=== PATIENT | female | born 1960 | race Caucasian/White ===

== ENCOUNTER → 2019-11-13 07:51 | Outpatient (CLI) | payer BC, SELFPAY ==
--- NOTE | ~2019-11-13 | XR_ITS ---
XR chest 2V DATE: 11/13/2019 08:03 INDICATION: Cough for one week TECHNIQUE: 2 views COMPARISON: 10/25/2012 two-view chest FINDINGS: There is moderate bilateral hyperinflation. No pulmonary infiltrate or consolidation, pleur al effusion or pulmonary vascular congestion or pneumothorax. Calcified pulmonary granuloma on the ri ght. Normal heart size. No hilar or mediastinal enlargement. Diffuse osteopenia. Mild thoracic dextroscoliosis. IMPRESSION: Bilateral hyperinflation suggesting COPD No active cardiopulmonary disease Reviewed, dictated and finalized at location B. SORTER
== END ==
PROVIDERS: PCP Family Medicine; Visit Provider Family Medicine
DX: R05 Cough (principal); R91.8 Other nonspecific abnormal finding of lung field
CPT/HCPCS: 71046

== ENCOUNTER 2020-07-13 08:39 | Outpatient (CLI) | payer BC, SELFPAY ==
--- NOTE | ~2020-07-13 | DEXA_ITS ---
Bone Density Report Name: Blanche Taylor Age: 60 Sex: Female Ethnicity: White Date of : 1960 Indication: osteopenia; monitoring treatment; height loss; inflammatory bowel disease; Referring Provider: FERMIN, JUAN Study: Bone densitometry was performed. Exam Date: July 13, 2020 Accession number: [id number] Bone Density: Region BMD T-score Z-score Classification AP Spine (L1-L4) 0.820 -2.1 -0.5 Osteopenia Femoral Neck (Left) 0.676 -1.6 -0.2 Osteopenia Total Hip (Left) 0.764 -1.5 -0.4 Osteopenia Total Hip Bilateral Avg 0.776 -1.4 -0.3 Osteopenia Femoral Neck (Right) 0.668 -1.6 -0.3 Osteopenia Total Hip (Right) 0.787 -1.3 -0.2 Osteopenia World Health Organization criteria for BMD impression classify patients as: Normal (T-score at or above -1.0), Osteopenia (T-score between -1.0 and -2.5), or Osteoporosis (T-score at or below -2.5). 10-year Fracture Risk: FRAX not reported because: Treated for osteoporosis Previous Exams: Region Exam Age BMD T-score BMD Change BMD Change Date g/cm2 vs Baseline vs Previous AP Spine(L1-L4) 07/13/2020 60 0.820 -2.1 -0.136(-14.3%) -0.055(-6.3%)* 04/23/2018 57 0.875 -1.6 -0.081(-8.5%)# 0.075(9.4%)* 01/13/2016 55 0.799 -2.3 -0.157(-16.4%) -0.004(-0.5%)# 10/28/2013 53 0.804 -2.2 -0.152(-15.9%) -0.152(-15.9%) 12/12/2009 49 0.956 -0.8 Total Hip(Left) 07/13/2020 60 0.764 -1.5 -0.108(-12.4%) -0.095(-11.1%) 04/23/2018 57 0.859 -0.7 -0.013(-1.5%)# 0.057(7.1%)* 01/13/2016 55 0.802 -1.1 -0.070(-8.0%)# 0.020(2.6%)# 10/28/2013 53 0.782 -1.3 -0.090(-10.3%) -0.090(-10.3%) 12/12/2009 49 0.872 -0.6 Total Hip(Right) 07/13/2020 60 0.787 -1.3 -0.039(-4.8%)# -0.053(-6.3%)* 04/23/2018 57 0.840 -0.8 0.014(1.7%)# 0.011(1.4%) 01/13/2016 55 0.828 -0.9 0.002(0.3%)# -0.020(-2.4%)# 10/28/2013 53 0.849 -0.8 0.023(2.8%)# 0.023(2.8%)# 12/12/2009 49 0.826 -1.0 *Denotes significance at 95% confidence level, LSC for AP Spine = 0.022 g/cm2, LSC for Total Hip = 0.027 g/cm2 Clinical Information Provided by Patient: Is being treated for osteoporosis Has used the following medications: Boniva (i.e. ibandronate), Prolia (i.e. denosumab), Vitamin D Has the following medical conditions: Inflammatory bowel diseases Patient maximum height was 66 Menopause Age: 49 Drinks caffeinated beverages Onset of menses at age 13 Number of children 0
--- NOTE | ~2020-07-13 | MM_ITS ---
EXAMINATION: MM screening ander BI w elmo HISTORY: Screening TECHNIQUE: Craniocaudal and mediolateral oblique 3-D tomosynthesis images were obtained and synthetic 2-D images were generated. CAD analysis was submitted and interpreted. COMPARISON: Comparison to multiple prior studies sequentially, with oldest reviewed study dated 06/2012. BREAST PARENCHYMAL COMPOSITION: The breasts are heterogeneously dense, which may obscure small masses . FINDINGS: There is no evidence of suspicious mass, calcification, or architectural distortion to sugg est malignancy in either breast. There has been no suspicious interval change. IMPRESSION: 1. No mammographic evidence of malignancy. 2. Recommend routine screening mammography in one year. BI-RADS Category 1: Negative Reviewed, dictated and finalized at location A.
== END 2020-07-13 08:40 | disposition home or self-care (01) ==
LOC: ANHIMG 08:41
PROVIDERS: PCP Family Medicine; Visit Provider Nurse Practitioner
DX: Z12.31 Encounter for screening mammogram for malignant neoplasm of breast (principal); M85.89 Other specified disorders of bone density and structure, multiple sites
CPT/HCPCS: 77063; 77067; 77080

== ENCOUNTER 2020-08-22 08:31 | Outpatient (CLI) | payer BC, SELFPAY ==
--- NOTE | 2020-08-25 16:43 | P.PCNPFT_ITS ---
PFT Interpretation PFT Interpretation: DOS: 08/22/2020 REQUESTING: Larry Vernon MD REASON FOR TESTING: COPD by CXR PULMONARY FUNCTION TESTS Results are reproducible. Spirometry: FEV1 is 80%, 1.78 L, normal. FVC is 94%, normal. The FEV1% ratio is decreased consistent with airflow obstruction. The WOE93-34% is severely de creased 33% and increases 26% with bronchodilator. FEV1 increases 15% and more than 200 ml with bronchodilator. Lung volumes: TLC 114%, normal. RV increased at 144%, moderate air trapping. Increased airway resistance. Diffusion: DLCO is 98%, normal. Flow volume loop: Mild scooping of the expiratory limb. IMPRESSION: Mild obstructive ventilatory impairment which is severe in the small airways, good response to bronchodilator, moderate air trapping, increased airway resistance. Normal diffusion. This pattern in the proper clinical setting may be compatible with asthma. Clinical correlation is recommended. Brandi Gleason MD
== END 2020-08-22 08:32 | disposition home or self-care (01) ==
PROVIDERS: PCP Family Medicine; Visit Provider Family Medicine
DX: R05 Cough (principal); R91.8 Other nonspecific abnormal finding of lung field; R94.2 Abnormal results of pulmonary function studies
CPT/HCPCS: 94060; 94726; 94729

== ENCOUNTER → 2021-07-25 09:08 | Outpatient (CLI) | payer BC, SELFPAY ==
--- NOTE | ~2021-07-25 | CT_ITS ---
EXAMINATION: CT lung screening DATE: 07/25/2021 09:27 INDICATION: Personal history of tobacco dependence TECHNIQUE: Computed tomography (CT) of the chest was performed without intravenous contrast. The dose -length product was 55.14 mGy-cm. Automated exposure control and iterative reconstruction technique w ere employed. COMPARISON: None FINDINGS: Heart size is normal. No significant pleural or pericardial effusion. Mild atherosclerosis of the aorta and coronary arteries. No thoracic lymphadenopathy. There are a few small nonenlarged ca lcified mediastinal/hilar lymph nodes, consistent with chronic granulomatous disease. There is apical pleural thickening/scarring. There is a densely calcified nodule in the right upper lobe anteriorly. There is a 4 mm right lower lobe nodule, image 72. There is a subsolid 4 mm nodule in the left upper lobe, image 40. IMPRESSION: 1. Lung-RADS category 2: Benign appearance or behavior. Continue annual screening with noncontrast lo w-dose chest CT in 12 months. Reviewed, dictated and finalized at location B. IMPRESSION: 1. Lung-RADS category 2: Benign appearance or behavior. Continue annual screeni ng with noncontrast low-dose chest CT in 12 months.
== END ==
PROVIDERS: PCP Internal Medicine; Visit Provider Internal Medicine
DX: Z87.891 Personal history of nicotine dependence (principal)
CPT/HCPCS: 71271

== ENCOUNTER 2021-08-09 08:14 | Outpatient (CLI) | payer BC, SELFPAY ==
--- NOTE | ~2021-08-09 | MM_ITS ---
EXAMINATION: MM screening ander BI w elmo HISTORY: Screening TECHNIQUE: Craniocaudal and mediolateral oblique 3-D tomosynthesis images were obtained and synthetic 2-D images were generated. CAD analysis was submitted and interpreted. COMPARISON: Comparison to multiple prior studies sequentially, with oldest reviewed study dated 11/16. BREAST PARENCHYMAL COMPOSITION: The breasts are heterogeneously dense, which may obscure small masses . FINDINGS: There is no evidence of suspicious mass, calcification, or architectural distortion to sugg est malignancy in either breast. There has been no suspicious interval change. IMPRESSION: 1. No mammographic evidence of malignancy. 2. Recommend routine screening mammography in one year. BI-RADS Category 1: Negative Reviewed, dictated and finalized at location A.
== END 2021-08-09 08:15 | disposition home or self-care (01) ==
LOC: ANHIMG 08:16
PROVIDERS: PCP Internal Medicine; Visit Provider Nurse Practitioner
DX: Z12.31 Encounter for screening mammogram for malignant neoplasm of breast (principal)
CPT/HCPCS: 77063; 77067

== ENCOUNTER → 2021-11-14 02:01 | Outpatient (CLI) | payer BC, SELFPAY ==
[2021-11-14 12:14] LABS: Influenza A QL RT-PCR Negative (Negative); Influenza B QL RT-PCR Negative (Negative); SARS-CoV-2 RNA PCR Negative
== END ==
PROVIDERS: PCP Internal Medicine; Visit Provider Internal Medicine
DX: R68.89 Other general symptoms and signs (principal); Z20.822 Contact with and (suspected) exposure to COVID-19
CPT/HCPCS: 87502; C9803; U0003; U0005

== ENCOUNTER 2022-08-29 09:07 | Emergency (ER) | payer BC, SELFPAY ==
--- NOTE | ~2022-08-29 | XR_ITS ---
EXAMINATION: XR shoulder RT min 2V DATE: 08/29/2022 09:39 INDICATION: Worsening right shoulder pain. TECHNIQUE: 4 views of right shoulder were obtained. COMPARISON: None. FINDINGS: Bone alignment is normal. No fracture. There is mild osteoarthritis of glenohumeral joint a nd acromioclavicular joint. There are old healed right rib fractures. Calcified right lung nodules an d calcified right hilar lymph nodes are consistent with old granulomatous disease. IMPRESSION: 1. Mild polyarticular osteoarthritis. Reviewed, dictated and finalized at location A. ITAL WARD CLERK
[2022-08-29 09:10] VITALS: BP 182/89; PULSE 101; RESP 16; TEMP 36.3; O2SAT 98
--- NOTE | 2022-08-29 09:52 | ED.UPPEXIN ---
HPI - Extremity Injury (Upper) General Chief Complaint: Extremity Injury, Upper Stated Complaint: R arm pain x 1 mos Time Seen by Provider: 08/29/22 09:09 Source: patient Mode of arrival: ambulatory Limitations: no limitations History of Present Illness HPI narrative: This is a 62 year old female that presents to the ER for right shoulder pain ongoing over the last month. Reports a constant achy pain, that is intermittently sharp. Worse with certain movements and at night. No recent injuries or trauma. Reports she has been taking Tylenol and Ibuprofen with some relief. Denies fever, erythema, edema, or numbness. Related Data Home Medications Medication Instructions Recorded Confirmed cholecalciferol (vitamin D3) 25 25 mcg PO DAILY 07/13/21 11/29/21 mcg (1,000 unit) capsule denosumab 60 mg/mL subcutaneous 60 mg subcut [id number] 07/13/21 11/29/21 syringe (Prolia) esomeprazole magnesium 20 mg 20 mg PO DAILY 07/13/21 11/29/21 capsule,delayed release (Nexium) tolterodine 4 mg capsule,extended 4 mg PO DAILY 07/13/21 11/29/21 release 24 hr Allergies Allergy/AdvReac Type Severity Reaction Status Date / Time No Known Allergies Allergy Mild NONE Verified 08/29/22 09:13 Review of Systems Review of Systems: CONSTITUTIONAL: Denies fever SKIN: Denies rash MUSCULOSKELETAL: Reports joint pain, and myalgia. NEUROLOGIC: Denies numbness, or weakness. All systems reviewed & are unremarkable except as noted in HPI and below PMFSH Past Medical History Medical History (Updated 08/29/22 @ 10:09 by Kathy Beltran PA-C) Anxiety Asthma Change in weight Difficulty breathing Difficulty sleeping Frequent urination Hair changes Headache High cholesterol Hot flashes IBS (irritable bowel syndrome) Irritable Palpitations Skin change Tired Family History Family History (Updated 07/13/21 @ 13:21 by Ny Marshall CNA) Father Alcohol abuse Dementia Leukemia Mother Heart disease Thyroid disease Sibling Hypertension Heart disease Leukemia Grandparent Heart disease Dementia Grandparent Heart disease Social History Social History (Updated 07/13/21 @ 13:29 by Ny Marshall CNA) Smoking packs per day: 1 Smoking cigarettes per day: 20.0 Years smoked: 40 Smoking pack-years: 40.00 Smoking status: Former smoker Tobacco type: cigarettes and e-cigarettes/vaping Second hand tobacco smoke exposure: Yes Smoking end date: 10/07/14 Alcohol intake: current Alcohol use details: beer Substance use: never Substance use type: does not use Exam Narrative: GENERAL: Well-appearing, well-nourished, and in no acute distress. HEAD: Normocephalic, atraumatic. EYES: EOMI. CHEST: Clear to auscultation. No respiratory distress. No wheezes rales or rhonchi HEART: Regular rate and rhythm. No murmur heard. Normal peripheral pulses. EXTREMITIES: Normal range of motion. No edema, erythema or warmth of the arm. Strength equal in bilateral upper extremities (5/5) SKIN: Warm, dry, no rash. NEURO: No focal deficits. Alert and oriented x3. PSYCH: Normal mood and affect Course Vital Signs Vital signs: Vital Signs Temperature 97.4 F L 08/29/22 09:10 Pulse Rate 101 H 08/29/22 09:10 Respiratory Rate 16 08/29/22 09:10 Blood Pressure 182/89 H 08/29/22 09:10 Pulse Oximetry 98 08/29/22 09:10 Oxygen Delivery Room Air 08/29/22 09:10 Temperature 97.4 F L 08/29/22 09:10 Pulse Rate 86 08/29/22 10:17 Respiratory Rate 18 08/29/22 10:17 Blood Pressure 168/80 H 08/29/22 10:17 Pulse Oximetry 97 08/29/22 10:17 Oxygen Delivery Room Air 08/29/22 09:10 MDM - Extremity Injury (Upper) MDM Narrative Medical decision making narrative: Patient presents to the ER for right shoulder pain ongoing over the last month. Reports no recent injuries or trauma. She is neurovascularly intact. No erythema or edema of the arm. Right shoulder x-ray shows polyarticular osteoarthritis.
[2022-08-29 10:17] VITALS: BP 168/80; PULSE 86; RESP 18; O2SAT 97
== END 2022-08-29 10:18 | disposition home or self-care (01) ==
PROVIDERS: Emergency Provider Emergency Medicine; PCP Internal Medicine
DX: M25.511 Pain in right shoulder (principal); J45.909 Unspecified asthma, uncomplicated; E78.00 Pure hypercholesterolemia, unspecified; K58.9 Irritable bowel syndrome, unspecified; M19.011 Primary osteoarthritis, right shoulder; R03.0 Elevated blood-pressure reading, without diagnosis of hypertension; Z87.891 Personal history of nicotine dependence
CPT/HCPCS: 73030; 99283

== ENCOUNTER 2022-12-03 08:12 | Outpatient (CLI) | payer BC, SELFPAY ==
--- NOTE | ~2022-12-03 | DEXA_ITS ---
Bone Density Report Name: NORMA BENDER Age: 62 Sex: Female Ethnicity: White Date of : 1960 Indication: postmenopausal; screening for osteoporosis; height loss; inflammatory bowel disease; asthma or emphysema; Referring Provider: ZURI BRANNON Study: Bone densitometry was performed. Exam Date: December 03, 2022 Accession number: [id number] Bone Density: Region BMD T-score Z-score Classification AP Spine(L1-L4) 0.851 -1.8 -0.1 Osteopenia Femoral Neck (Left) 0.709 -1.3 0.2 Osteopenia Total Hip (Left) 0.844 -0.8 0.4 Normal Femoral Neck (Right) 0.676 -1.6 -0.1 Osteopenia Total Hip (Right) 0.827 -0.9 0.3 Normal Total Hip Mean 0.835 -0.9 0.4 Normal World Health Organization criteria for BMD impression classify patients as: Normal (T-score at or above -1.0), Osteopenia (T-score between -1.0 and -2.5), or Osteoporosis (T-score at or below -2.5). 10-year Fracture Risk(1): Major Osteoporotic Fracture 11% Hip Fracture 1.4% Reported Risk Factors: [place] (), Neck BMD=0.676, BMI=26.5, alcohol use (1) FRAX(R) Version 3.08. Fracture probability calculated for an untreated patient. Fracture probability may be lower if the patient has received treatment. Clinical Information Provided by Patient: Has 3 or more alcoholic drinks per day Has used the following medications: Prolia (i.e. denosumab), Vitamin D Has the following medical conditions: Asthma or Emphysema, Inflammatory bowel diseases Patient maximum height was 66 Menopause Age: 49 No regular weight bearing exercise Does not regularly consume dairy products Onset of menses at age 13 Number of children 0 Impression: The patient has low bone mass, based on the Total Spine T-score. The patient has an estimated ten-year risk of hip fracture of 1.4% and an estimated ten-year risk of major fracture of 11%, based on the WHO FRAX algorithm. The patient has risk factors, including: excessive alcohol use. Discussion: BONE DENSITY IS LOW AT ONE OR MORE SKELETAL SITES. This patient's lowest T-score is low at one or more skeletal sites. It meets the World Health Organization's (WHO) criteria for ?low bone mass? (T-score between -1.0 and -2.5). The patient's 10-year risk of fracture as calculated by FRAX is less than the threshold where pharmacological therapy is recommended by the National Osteoporosis Foundation (NOF). However, all treatment decisions require clinical judgment and consideration of individual patient factors, including patient preferences, comorbidities, previous drug use, risk factors not captured in the FRAX model (e.g., frailty, falls, vitamin D deficiency, increased bone turnover, interval significant decline in bone density) and possible under or overestimation of fracture risk by FRAX. The patient should f
--- NOTE | ~2022-12-03 | MM_ITS ---
EXAMINATION: MM screening ander BI w elmo HISTORY: Screening mammogram TECHNIQUE: Craniocaudal and mediolateral oblique 3-D tomosynthesis images were obtained and synthetic 2-D images were generated. CAD analysis was submitted and interpreted. COMPARISON: 08/09/2021, 07/13/2020, 04/23/2018 bilateral screening mammogram examinations BREAST PARENCHYMAL COMPOSITION: The breasts are heterogeneously dense, which may obscure small masses . FINDINGS: There is no evidence of suspicious mass, calcification, or architectural distortion to sugg est malignancy in either breast. There has been no suspicious interval change. IMPRESSION: 1. No mammographic evidence of malignancy. 2. Recommend routine screening mammography in one year. BI-RADS Category 1: Negative Reviewed, dictated and finalized at location A. BOTOMY SERVICES REPRESENTATIVE
== END 2022-12-03 08:13 | disposition home or self-care (01) ==
PROVIDERS: PCP Internal Medicine; Visit Provider Obstetrics & Gynecology Gynecology
DX: Z12.31 Encounter for screening mammogram for malignant neoplasm of breast (principal); Z78.0 Asymptomatic menopausal state; M85.88 Other specified disorders of bone density and structure, other site; M85.852 Other specified disorders of bone density and structure, left thigh; M85.851 Other specified disorders of bone density and structure, right thigh
CPT/HCPCS: 77063; 77067; 77080

== ENCOUNTER 2023-04-18 07:38 | Emergency (ER) | payer BC, SELFPAY ==
[2023-04-18 07:52] VITALS: BP 163/95; PULSE 95; RESP 18; TEMP 36.6; O2SAT 100
--- NOTE | 2023-04-18 08:02 | ED.GENADULT ---
HPI - General Adult General Chief complaint: Back Pain/Injury Stated complaint: buttock pain Time Seen by Provider: 04/18/23 07:44 History of Present Illness HPI narrative: 62-year-old female presented to the emergency department for evaluation right buttock pain. Patient reports she has been working in the yard more frequently but denies any specific incident of injury. Patient states over the last few days she has had increased right buttock pain that is worsened with ambulation. Patient denies any pain with sitting or resting but does report pain with ambulation. Patient reports he did have some radiation of the pain down her right leg but denies any associated numbness or weakness. Related Data Home Medications Medication Instructions Recorded Confirmed cholecalciferol (vitamin D3) 25 25 mcg PO DAILY 07/13/21 09/04/22 mcg (1,000 unit) capsule denosumab 60 mg/mL subcutaneous 60 mg subcut [id number] 07/13/21 09/04/22 syringe (Prolia) esomeprazole magnesium 20 mg 20 mg PO DAILY 07/13/21 09/04/22 capsule,delayed release (Nexium) tolterodine 4 mg capsule,extended 4 mg PO DAILY 07/13/21 09/04/22 release 24 hr Allergies Allergy/AdvReac Type Severity Reaction Status Date / Time No Known Allergies Allergy Mild NONE Verified 04/18/23 08:04 Review of Systems Review of Systems: All systems reviewed & are unremarkable except as noted in HPI and below PMFSH Past Medical History Medical History Anxiety Asthma Change in weight Difficulty breathing Difficulty sleeping Frequent urination Hair changes Headache High cholesterol Hot flashes IBS (irritable bowel syndrome) Irritable Palpitations Skin change Tired Family History Family History Father Alcohol abuse Dementia Leukemia Mother Heart disease Thyroid disease Sibling Hypertension Heart disease Leukemia Grandparent Heart disease Dementia Grandparent Heart disease Social History Social History Smoking packs per day: 1 Smoking cigarettes per day: 20.0 Years smoked: 40 Smoking pack-years: 40.00 Smoking status: Former smoker Tobacco type: cigarettes and e-cigarettes/vaping Second hand tobacco smoke exposure: Yes Smoking end date: 10/07/14 Alcohol intake: current Alcohol use details: beer Substance use: never Substance use type: does not use Lack of Transportation: No Lack of Food: Never True Current Housing: I Have Housing Concerned About Future Housing: No Difficulty Paying Gas/Electric Bills: No Difficulty Paying for Meds: No Currently Unemployed: No Education: High School Diploma/GED Difficulty w/ Childcare or Family Care: No Exam Narrative: APPEARANCE: Well appearing, no pain, no distress, well-nourished. HEAD: normocephalic, atraumatic. EYES: PERRLA/EOMI, conjunctivae clear. NOSE: Normal no drainage NECK: Supple. No adenopathy, no masses. RESPIRATORY: Airway patent, respirations nonlabored. Clear to auscultation bilaterally, no rales, rhonchi, wheezing. CARDIOVASCULAR: Regular rate and rhythm without murmurs rubs or gallops. ABDOMINAL: Soft, nontender, nondistended, normal bowel sounds MUSCULOSKELETAL: Right buttock pain with reproducible tenderness NEURO: Negative straight leg SKIN: No right buttock erythema or rash Course Course Emergency Course: 62-year-old female presented the ED for evaluation of reproducible right buttock pain. Patient does describe increased physical activity and pain is consistent with a muscular strain versus sciatica. Patient will be treated with Flexeril, p.o. Tylenol and a Medrol Dosepak for home. Patient is not diabetic. Patient was treated with p.o. Flexeril and IM Toradol while in the emergency department. Patient was updated on the results of the work-up and plan for home
[2023-04-18] MEDS: CYCLOBENZAPRINE HCL 10 MG TABLET PO (08:10)
[2023-04-18] MEDS: KETOROLAC 30 MG/ML VIAL (*BKC) IM (08:10)
[2023-04-18 08:43] VITALS: BP 184/85; PULSE 88; RESP 16; O2SAT 99
--- NOTE | 2023-04-18 09:13 | PC.NURSE ---
0912- PER PATIENT REQUEST, CALLED TO [facility] AND CANCELLED PRESCRIPTIONS FOR CYCLOBENZAPRINE AND MEDROL DOSE CAROL.
== END 2023-04-18 09:10 | disposition home or self-care (01) ==
PROVIDERS: Emergency Provider Emergency Medicine; PCP Pediatrics Neonatal-Perinatal Medicine
DX: M79.18 Myalgia, other site (principal); J45.909 Unspecified asthma, uncomplicated; E78.00 Pure hypercholesterolemia, unspecified; K58.9 Irritable bowel syndrome, unspecified; Z87.891 Personal history of nicotine dependence
CPT/HCPCS: 96372; 99283; A9270; J1885

== ENCOUNTER 2023-11-25 09:43 | Outpatient (CLI) | payer MEDICARE, SELFPAY ==
--- NOTE | ~2023-11-25 | CT_ITS ---
CT Scan of the Chest without Contrast: Clinical Indication: Lung cancer screening, personal history of nicotine dependence Technique: Contiguous sections were acquired throughout the chest without intravenous contrast. Dose reduction technique was used on this scan by utilizing automated exposure control and iterative recon struction technique. The dose-length product (DLP) was 71.82 mGy-cm. Findings: There is no evidence of any significant mediastinal, hilar or axillary lymphadenopathy. The mediastin al soft tissues appear normal. There is no evidence of pleural or pericardial effusion. Calcified right upper lobe granuloma present. There is a 3 mm right lower lobe pulmonary nodule (axia l image 69). Images through the upper abdomen reveal no abnormalities. Impression: Lung RADS 2: Benign appearance. 12 month follow-up screening CT advised. Reviewed, dictated and finalized at location . EXAMINER Impression: Lung RADS 2: Benign appearance. 12 month follow-up screening CT advised.
== END 2023-11-25 09:44 | disposition home or self-care (01) ==
LOC: ANHIMG 09:45
PROVIDERS: PCP Nurse Practitioner; Visit Provider Nurse Practitioner
DX: Z12.2 Encounter for screening for malignant neoplasm of respiratory organs (principal); Z87.891 Personal history of nicotine dependence
CPT/HCPCS: 71271

== ENCOUNTER 2024-01-06 01:53 | Day surgery (SDC) | payer MEDICARE, SELFPAY ==
[2023-12-27 08:27] VITALS: BMI 24.2
--- NOTE | 2024-01-03 09:22 | SUR.PREOP ---
Patient called regarding upcoming procedure. Reviewed preop instructions, appointment times, and procedure prep.
[2024-01-06 07:11] VITALS: BP 147/68; PULSE 85; RESP 16; TEMP 36.4; O2SAT 98
[2024-01-06] MEDS: LACTATED RINGERS 1,000 ML 150 ML IV CONT (07:20)
--- NOTE | 2024-01-06 08:24 | PM.HPGS ---
History of Present Illness History of Present Illness Consent: Risks, benefits, and alternatives have been discussed and questions answered. Patient agrees to proceed with procedure. Chief complaint: neoplasm screening Narrative: Blanche Taylor is a 63 year old female here for screening colonoscopy, last one 11 years ago Review of Systems Review of Systems: All systems reviewed & are unremarkable except as noted in HPI and below PMFSH Past Medical History Medical History Anxiety Asthma Change in weight Difficulty breathing Difficulty sleeping Frequent urination Hair changes Headache High cholesterol Hot flashes IBS (irritable bowel syndrome) Irritable Palpitations Skin change Tired Family History Family History Father Alcohol abuse Dementia Leukemia Mother Heart disease Thyroid disease Sibling Hypertension Heart disease Leukemia Grandparent Heart disease Dementia Grandparent Heart disease Social History Social History Smoking packs per day: 1 Smoking cigarettes per day: 20.0 Years smoked: 40 Smoking pack-years: 40.00 Smoking status: Current every day smoker Tobacco type: e-cigarettes/vaping Second hand tobacco smoke exposure: Yes Smoking end date: 10/07/14 Alcohol intake: current Drinks per week: 5 Alcohol use details: BEER Substance use: never Substance use type: does not use Lack of Transportation: No Lack of Food: Never True Current Housing: I Have Housing Concerned About Future Housing: No Difficulty Paying Gas/Electric Bills: No Difficulty Paying for Meds: No Currently Unemployed: No Education: High School Diploma/GED Difficulty w/ Childcare or Family Care: No Living arrangements: with family Spiritual care concerns: No Meds Home Medications and Allergies Home Medications Medication Instructions Recorded Confirmed Type albuterol sulfate 90 mcg/actuation 1 inh inhalation Q4H PRN shortness 07/13/21 01/06/24 Rx aerosol inhaler of breath or wheezing #8.5 grams cholecalciferol (vitamin D3) 25 25 mcg PO DAILY 07/13/21 12/27/23 History mcg (1,000 unit) capsule esomeprazole magnesium 20 mg 20 mg PO DAILY PRN Acid Reflux 04/25/23 12/27/23 History capsule,delayed release (Nexium) alendronate 70 mg tablet 70 mg PO WEEKLY 10/25/23 12/27/23 History escitalopram oxalate 10 mg tablet 10 mg PO DAILY #30 tabs 10/25/23 12/27/23 Rx fluticasone furoate 100 1 inh inhalation DAILY #60 ea 12/19/23 12/27/23 Rx mcg-vilanterol 25 mcg/dose inhalation powder (Breo Ellipta) Allergies Allergy/AdvReac Type Severity Reaction Status Date / Time No Known Allergies Allergy Mild NONE Verified 01/06/24 07:10 Vital Signs Vital Signs - 24 hr 01/06/24 07:11 Temperature 97.5 F L Pulse Rate 85 Respiratory Rate 16 Blood Pressure 147/68 H Pulse Oximetry 98 Oxygen Delivery Room Air Exam Const: General: comfortable and no acute distress HENMT: Face/Nose/Sinus: Normal nares present Eyes: General: appearance normal, both eyes and all related structures Neck: Neck: no JVD Resp: Auscultation: clear to auscultation bilaterally Cardio: Rate: regular rate Rhythm: regular rhythm GI: Inspection: non-distended GI Palp: Yes Soft to palpation Skin: General skin exam: normal color Neuro: General: gait normal Speech: normal speech Extrem: General: normal to inspection Psych: Mental Status: mental status grossly normal Assessment and Plan Assessment and plan (1) Screening for colon cancer: Code(s): Z12.11 - Encounter for screening for malignant neoplasm of colon Status: Acute Assessment and Plan: colonoscopy
[2024-01-06 08:43] VITALS: BP 114/63; PULSE 66; RESP 22; O2SAT 99
[2024-01-06 08:53] VITALS: BP 118/72; PULSE 61; RESP 20; O2SAT 99
[2024-01-06 09:03] VITALS: BP 114/76; PULSE 65; RESP 18; O2SAT 99
--- NOTE | 2024-01-10 11:40 | WPDANESEPPF ---
Anes - Initial Pre Proc Eval Procedure: Operation Date: 01/06/24 08:30 Proposed Procedures p Screening Colonoscopy - Dyllan Martin MD Date/Time: 01/10/24 11:40 Surgeon: Dyllan Martin MD Pre Op Diagnosis: neoplasm screening Patient Data Age: 63 Gender: F Height: 1.65 m Weight: 64.4 kg Last Vital Signs Temp 97.5 F L 01/06/24 07:11 Pulse 65 01/06/24 09:03 Resp 18 01/06/24 09:03 BP 114/76 01/06/24 09:03 Pulse Ox 99 01/06/24 09:03 O2 Del Method Room Air 01/06/24 09:03 Allergies Allergy/AdvReac Type Severity Reaction Status Date / Time No Known Allergies Allergy Mild NONE Verified 01/06/24 07:10 Home Medications Medication Instructions Recorded Confirmed Type albuterol sulfate 90 mcg/actuation 1 inh inhalation Q4H PRN shortness 07/13/21 01/06/24 Rx aerosol inhaler of breath or wheezing #8.5 grams cholecalciferol (vitamin D3) 25 25 mcg PO DAILY 07/13/21 12/27/23 History mcg (1,000 unit) capsule esomeprazole magnesium 20 mg 20 mg PO DAILY PRN Acid Reflux 04/25/23 12/27/23 History capsule,delayed release (Nexium) alendronate 70 mg tablet 70 mg PO WEEKLY 10/25/23 12/27/23 History escitalopram oxalate 10 mg tablet 10 mg PO DAILY #30 tabs 10/25/23 12/27/23 Rx fluticasone furoate 100 1 inh inhalation DAILY #60 ea 12/19/23 12/27/23 Rx mcg-vilanterol 25 mcg/dose inhalation powder (Breo Ellipta) Patient hx anesthesia problems: none Family hx anesthesia problems: none Results Review: All pre-operative results and documents have been reviewed as part of the pre-operative evaluation. [facility] Past Medical History Medical History Anxiety Asthma Change in weight Difficulty breathing Difficulty sleeping Frequent urination Hair changes Headache High cholesterol Hot flashes IBS (irritable bowel syndrome) Irritable Palpitations Skin change Tired Family History Family History Father Alcohol abuse Dementia Leukemia Mother Heart disease Thyroid disease Sibling Hypertension Heart disease Leukemia Grandparent Heart disease Dementia Grandparent Heart disease Social History Social History Smoking packs per day: 1 Smoking cigarettes per day: 20.0 Years smoked: 40 Smoking pack-years: 40.00 Smoking status: Current every day smoker Tobacco type: e-cigarettes/vaping Second hand tobacco smoke exposure: Yes Smoking end date: 10/07/14 Alcohol intake: current Drinks per week: 5 Alcohol use details: BEER Substance use: never Substance use type: does not use Lack of Transportation: No Lack of Food: Never True Current Housing: I Have Housing Concerned About Future Housing: No Difficulty Paying Gas/Electric Bills: No Difficulty Paying for Meds: No Currently Unemployed: No Education: High School Diploma/GED Difficulty w/ Childcare or Family Care: No Living arrangements: with family Spiritual care concerns: No Anes - Eval Final PreProcedure Day of Procedure 01/10/24 11:40 Patient weight: normal Heart: regular rate and rhythm Lungs: clear to auscultation Airway: Mallampati scale class II Neurological: alert and oriented Last oral intake: >/= 8 hours ASA classification: III Emergent: no Anesthetic plan: proceed Anesthesia type and monitoring: general GIVS and standard monitoring Results Review: All pre-operative results and documents have been reviewed as part of the pre-operative evaluation. Informed Consent: The patient's anesthetic plan and its attendant risks and benefits were discussed with the patient/family/POA. Questions were solicited and answers provided to the satisfaction of the patient/family/POA.
== END 2024-01-06 09:10 | disposition home or self-care (01) ==
PROVIDERS: PCP Nurse Practitioner; Visit Provider Internal Medicine Gastroenterology
PROC: 0DJD8ZZ Inspection of Lower Intestinal Tract, Via Natural or Artificial Opening Endoscopic (ICD-10-PCS; CPT 45378; principal; 2024-01-06 08:30)
DX: Z12.11 Encounter for screening for malignant neoplasm of colon (principal); K64.8 Other hemorrhoids; K57.30 Diverticulosis of large intestine without perforation or abscess without bleeding; F41.9 Anxiety disorder, unspecified; J45.909 Unspecified asthma, uncomplicated; R35.0 Frequency of micturition; E78.00 Pure hypercholesterolemia, unspecified; K58.9 Irritable bowel syndrome, unspecified; F17.290 Nicotine dependence, other tobacco product, uncomplicated; Z79.51 Long term (current) use of inhaled steroids; Z79.83 Long term (current) use of bisphosphonates; Z82.49 Family history of ischemic heart disease and other diseases of the circulatory system
CPT/HCPCS: G0121; J2001; J2704; J7120

== ENCOUNTER 2024-02-11 08:32 | Outpatient (CLI) | payer MEDICARE, SELFPAY ==
--- NOTE | ~2024-02-11 | MM_ITS ---
EXAMINATION: MM screening ander BI w elmo HISTORY: Screening mammogram TECHNIQUE: Craniocaudal and mediolateral oblique 3-D tomosynthesis images were obtained and synthetic 2-D images were generated. CAD analysis was submitted and interpreted. COMPARISON: December 03, 2022, August 09, 2021 bilateral screening mammogram examination BREAST PARENCHYMAL COMPOSITION: The breasts are heterogeneously dense, which may obscure small masses . FINDINGS: There is no evidence of suspicious mass, calcification, or architectural distortion to sugg est malignancy in either breast. There has been no suspicious interval change. IMPRESSION: 1. No mammographic evidence of malignancy. 2. Recommend routine screening mammography in one year. BI-RADS Category 1: Negative Reviewed, dictated and finalized at location B.
== END 2024-02-11 08:33 | disposition home or self-care (01) ==
PROVIDERS: PCP Nurse Practitioner; Visit Provider Nurse Practitioner
DX: Z12.31 Encounter for screening mammogram for malignant neoplasm of breast (principal)
CPT/HCPCS: 77063; 77067

== ENCOUNTER 2025-02-12 08:05 | Outpatient (CLI) | payer MEDICARE, SELFPAY ==
--- NOTE | ~2025-02-12 | CT_ITS ---
CT Scan of the Chest without Contrast: Clinical Indication: Lung cancer screening, nicotine dependence Technique: Contiguous sections were acquired throughout the chest without intravenous contrast. Dose reduction technique was used on this scan by utilizing automated exposure control and iterative recon struction technique. The dose-length product (DLP) was 66.95 mGy-cm. COMPARISON: 11/25/2023 Findings: There is no evidence of any significant mediastinal, hilar or axillary lymphadenopathy. Coronary wilbur ry calcifications are present. There is no evidence of pleural or pericardial effusion. Calcified right upper lobe granuloma present. 4 mm right lower lobe nodule present (axial image 64). 3 mm left basilar pulmonary nodule present (axial image 95). Images through the upper abdomen reveal no abnormalities. Impression: Lung RADS 2: Benign appearance 12 month follow-up screening CT advised. Reviewed, dictated and finalized at [facility]. Impression: Lung RADS 2: Benign appearance 12 month follow-up screening CT advised.
== END 2025-02-12 08:06 | disposition home or self-care (01) ==
LOC: MICIMG 08:06
PROVIDERS: PCP Nurse Practitioner Family; Visit Provider Nurse Practitioner Family
DX: Z12.2 Encounter for screening for malignant neoplasm of respiratory organs (principal); Z87.891 Personal history of nicotine dependence
CPT/HCPCS: 71271

== ENCOUNTER 2025-02-18 09:40 | Outpatient (CLI) | payer MEDICARE, SELFPAY ==
--- NOTE | ~2025-02-18 | DEXA_ITS ---
Bone Density Report Name: NORMA BENDER Age: 64 Sex: Female Ethnicity: White Date of : 1960 Indication: osteopenia; height loss; inflammatory bowel disease; asthma or emphysema; Referring Provider: FERMIN, JUAN Study: Bone densitometry was performed. Exam Date: February 18, 2025 Accession number: [id number] Bone Density: Region BMD T-score Z-score Classification AP Spine(L1-L4) 0.886 -1.5 0.4 Osteopenia Femoral Neck (Left) 0.638 -1.9 -0.3 Osteopenia Total Hip (Left) 0.778 -1.3 0.0 Osteopenia Femoral Neck (Right) 0.625 -2.0 -0.4 Osteopenia Total Hip (Right) 0.782 -1.3 0.0 Osteopenia Total Hip Mean 0.780 -1.3 0.0 Osteopenia World Health Organization criteria for BMD impression classify patients as: Normal (T-score at or above -1.0), Osteopenia (T-score between -1.0 and -2.5), or Osteoporosis (T-score at or below -2.5). 10-year Fracture Risk(1): Major Osteoporotic Fracture 11% Hip Fracture 1.7% Reported Risk Factors: [place] (), Neck BMD=0.625, BMI=26.5 (1) FRAX(R) Version 3.08. Fracture probability calculated for an untreated patient. Fracture probability may be lower if the patient has received treatment. Previous Exams: Region Exam Age BMD T-score BMD Change BMD Change Date g/cm2 vs Baseline vs Previous AP Spine (L1-L4) 02/18/2025 64 0.886 -1.5 0.083 (10.3%)# 0.035 (4.1%)* 12/03/2022 62 0.851 -1.8 0.047 (5.9%)# 0.031 (3.8%)* 07/13/2020 60 0.820 -2.1 0.016 (2.0%)# -0.055 (-6.3%) 04/23/2018 57 0.875 -1.6 0.071 (8.8%)# 0.075 (9.4%)* 01/13/2016 55 0.799 -2.3 -0.004 (-0.5%) -0.004 (-0.5%) 10/28/2013 53 0.804 -2.2 Total Hip(Left) 02/18/2025 64 0.778 -1.3 -0.003 (-0.4%) -0.066 (-7.8%) 12/03/2022 62 0.844 -0.8 0.062 (8.0%)# 0.080 (10.5%)* 07/13/2020 60 0.764 -1.5 -0.018 (-2.3%) -0.095 (-11.1% 04/23/2018 57 0.859 -0.7 0.077 (9.9%)# 0.057 (7.1%)* 01/13/2016 55 0.802 -1.1 0.020 (2.6%)# 0.020 (2.6%)# 10/28/2013 53 0.782 -1.3 Total Hip(Right) 02/18/2025 64 0.782 -1.3 -0.067 (-7.9%) -0.045 (-5.4%) 12/03/2022 62 0.827 -0.9 -0.022 (-2.6%) 0.040 (5.1%)* 07/13/2020 60 0.787 -1.3 -0.062 (-7.3%) -0.053 (-6.3%) 04/23/2018 57 0.840 -0.8 -0.009 (-1.1%) 0.011 (1.4%) 01/13/2016 55 0.828 -0.9 -0.020 (-2.4%) -0.020 (-2.4%) 10/28/2013 53 0.849 -0.8 *Denotes significance at 95% confidence level, LSC for AP Spine = 0.022 g/cm2, LSC for Total Hip = 0.027 g/cm2 # Denotes dissimilar scan types or analysis methods Clinical Information Provided by Patient: Has used the following medications: Fosamax (i.e. alendronate), Prolia (i.e. denosumab), Vitamin D, Calcium Has the following medical conditions: Asthma or Emphysema, Inflammatory bowel diseases Patient maximum height was 66 Menopause Age: 49 No regular weight bearing exercise Does not regularly consume dairy products Onset of menses at age 13 Number of children 0 Impression: The patient has low bone mass, based on the Right Femoral Neck T-score. The patient has an estimated ten-year risk of hip fracture of 1.7% and an estimated ten-year risk of major fracture of 11%, based on the WHO FRAX algorithm. The BMD for the Total Hip(Left) decreased, changing by -7.8% since the last DXA exam. The BMD for the Total Hip(Right) decreased, changing by -5.4% since the last DXA exam. Discussion: BONE DENSITY IS LOW AT ONE OR MORE SKELETAL SITES. This patient's lowest T-score is low at one or more skeletal sites. It meets the World Health Organization's (WHO) criteria for “low bone mass” (T-score between -1.0 and -2.5). The patient's 10-year risk of fracture as calculated by FRAX is less than the threshold where pharmacological therapy is recommended by the National Osteoporosis Foundation (NOF). However, all treatment decisions require clinical judgment and consideration of individual patient factors, including patient preferences, comorbidities, previous drug use, risk factors not captured in the FRAX model (e.g., frailty, falls, vitamin D deficiency, increased bone turnover, interval significant decline in bone density) and possible under or overestimation of fracture risk by FRAX. The patient should follow a healthful lifestyle (good nutrition with adequate calcium and vitamin D, and appropriate weight-bearing exercise). Follow-Up: Consider repeating this study in 2 years to reassess this patient's status, or sooner if there is some new clinical indication. Reported by: CARMEL on 02/18/2025 10:19:00 AM. Reviewed, dictated and finalized at location A.
--- NOTE | ~2025-02-18 | MM_ITS ---
EXAMINATION: MM screening ander BI w elmo HISTORY: Screening TECHNIQUE: Craniocaudal and mediolateral oblique 3-D tomosynthesis images were obtained and synthetic 2-D images were generated. CAD analysis was submitted and interpreted. COMPARISON: Comparison to multiple prior studies sequentially, with oldest reviewed study dated 06/2017. BREAST PARENCHYMAL COMPOSITION: Dense: The breasts are heterogeneously dense, which may obscure small masses FINDINGS: There is no evidence of suspicious mass, calcification, or architectural distortion to sugg est malignancy in either breast. There has been no suspicious interval change. IMPRESSION: 1. No mammographic evidence of malignancy. 2. Recommend routine screening mammography in one year. BI-RADS Category 1: Negative Reviewed, dictated and finalized at location A.
== END 2025-02-18 09:41 | disposition home or self-care (01) ==
LOC: ANHIMG 09:42
PROVIDERS: PCP Nurse Practitioner Family; Visit Provider Nurse Practitioner
DX: M85.89 Other specified disorders of bone density and structure, multiple sites (principal); Z12.31 Encounter for screening mammogram for malignant neoplasm of breast
CPT/HCPCS: 77063; 77067; 77080